=== PATIENT | male | born 1965 | race Caucasian/White ===

== ENCOUNTER 2024-05-19 11:00 | Inpatient (IN) | payer MEDICAID ==
[~2024-05-19] VITALS: Ht 188 cm; Wt 104.0 kg
[2024-05-19 11:26] LABS: EOSINOPHILS # (AUTO) 0.2 X10'3 (0-0.9); HEMOGLOBIN 14.6 g/dl (14.0-17.9); LYMPHOCYTES # (AUTO) 1.2 X10'3 (1.1-4.8); MEAN PLATELET VOLUME 8.3 FL (7.4-10.4); NEUTROPHILS # (AUTO) 5.2 X10'3 (1.8-7.7); RED BLOOD COUNT 5.84 X10'6 (4.70-6.10)
[2024-05-19 11:27] LABS: BASOPHILS % (AUTO) 0.6 % (0-1); EOSINOPHILS % (AUTO) 2.9 % (0-6); HEMATOCRIT 45.5 % (42.0-52.0); LYMPHOCYTES % (AUTO) 15.6 % (21-51); MEAN CORPUSCULAR HEMOGLOBIN 24.9 PG (27.0-31.0); MONOCYTES % (AUTO) 12.8 % (2-12); NEUTROPHILS % (AUTO) 68.1 % (42-75); PLATELET COUNT 282 X10'3 (140-440); RED CELL DISTRIBUTION WIDTH 19.5 % (11.5-14.5); WHITE BLOOD COUNT 7.6 X10'3 (4.5-11.0)
[2024-05-19 11:31] LABS: ALANINE AMINOTRANSFERASE 23 U/L (12-78); ALBUMIN 3.6 G/DL (3.4-5.0); ALBUMIN/GLOBULIN RATIO 1.1 (1.1-1.5); ALKALINE PHOSPHATASE 84 IU/L (46-116); ANION GAP 7 (8-16); ASPARTATE AMINO TRANSFERASE 21 U/L (10-37); BILIRUBIN,TOTAL 0.4 MG/DL (0.1-1.0); BLOOD UREA NITROGEN 13 MG/DL (7-18); BUN/CREATININE RATIO 10.7 (10.0-20.0); CALCIUM 8.6 MG/DL (8.5-10.1); CHLORIDE 104 MMOL/L (99-107); CREATININE 1.21 MG/DL (0.60-1.10); GLUCOSE 113 MG/DL (70-104); POTASSIUM 4.2 MMOL/L (3.5-5.1); SODIUM 139 MMOL/L (135-145); TOTAL CARBON DIOXIDE 28.5 MMOL/L (24-32); eCRCL 76 ML/MIN; eGFR 61 ML/MIN
[2024-05-19 11:39] LABS: PRO BRAIN NATRIURETIC PEPTIDE 241 PG/ML (0-125)
[2024-05-19 12:23] LABS: PLATELET ESTIMATE NORMAL
[2024-05-19 12:24] LABS: ANISOCYTOSIS 2+; ELLIPTOCYTES 1+; HYPOCHROMASIA 1+; MICROCYTOSIS 1+; STOMATOCYTES 1+
[2024-05-19] MEDS ORDERED: LOP25T PO (12:25)
[2024-05-19] MEDS ORDERED: ESCI10TA PO (12:25)
[2024-05-19] MEDS ORDERED: ATOR10TA PO (12:26)
[2024-05-19] MEDS ORDERED: acetaminophen 325mg tablet PO PRN (12:45)
[2024-05-19] MEDS ORDERED: magnesium hydroxide 30ml (MOM) UD suspension PO PRN (12:45)
[2024-05-19] MEDS ORDERED: diphenhydrAMINE 25mg capsule PO PRN (12:45)
[2024-05-19] MEDS ORDERED: diphenhydrAMINE 50 mg/ml inj IV PRN (12:45)
[2024-05-19] MEDS ORDERED: potassium Cl 40MEQ/1/2NS 520ml 520 ML IV PRN (12:45)
[2024-05-19] MEDS ORDERED: magnesium sulf-water 4G/100mL 100 ML IV PRN (12:45)
[2024-05-19] MEDS ORDERED: morphine 2 MG/ML inj. syringe IV PRN (12:45)
[2024-05-19] MEDS ORDERED: magnesium Cl slow-release 64mg tablet PO PRN (12:45)
[2024-05-19] MEDS ORDERED: magnesium sulf-water 2g/50mL 50 ML IV PRN (12:45)
[2024-05-19] MEDS ORDERED: potassium Cl 20 mEq SR tablet PO PRN ×2 (12:45)
[2024-05-19] MEDS: PERFLUTREN PROTEIN-A MICROSPHR (Optison) 0.22 MG/ML 3ML VIAL IV ONE (12:50)
[2024-05-19 13:02] LABS: MAGNESIUM 2.1 MG/DL (1.5-2.4)
[2024-05-19] MEDS: apixaban 5mg tablet PO SCH (14:13)
[2024-05-19] MEDS: aspirin 81mg, enteric-coated 1 TAB TABLET.DR PO STA (14:13)
[2024-05-19] MEDS: atorvastatin 20mg tablet PO STA (14:14)
[2024-05-19] MEDS: clopidogrel 75mg tablet PO STA (14:14)
[2024-05-19] MEDS: ondansetron/PF 4mg/2ml inj IV PRN (14:23)
[2024-05-19] MEDS: morphine 2 MG/ML inj. syringe IV PRN (14:24)
[2024-05-19] MEDS ORDERED: TEST200V33 IM (14:43)
[2024-05-19] MEDS ORDERED: LORazepam 1 MG tablet PO PRN (19:15)
[2024-05-19] MEDS ORDERED: haloperidol 5mg tablet PO PRN (19:15)
[2024-05-19] MEDS ORDERED: haloperidol lactate 5mg/ml inj IM PRN (19:15)
[2024-05-19] MEDS ORDERED: LORazepam 2 mg/ml vial IV PRN (19:15)
[2024-05-19 19:38] LABS: BASOPHILS # (AUTO) 0.1 X10'3 (0-0.2); BASOPHILS % (AUTO) 0.6 % (0-1); EOSINOPHILS # (AUTO) 0.2 X10'3 (0-0.9); EOSINOPHILS % (AUTO) 2.4 % (0-6); HEMATOCRIT 43.3 % (42.0-52.0); HEMOGLOBIN 13.6 g/dl (14.0-17.9); LYMPHOCYTES # (AUTO) 1.1 X10'3 (1.1-4.8); LYMPHOCYTES % (AUTO) 13.3 % (21-51); MEAN CORPUSCULAR HEMOGLOBIN 24.2 PG (27.0-31.0); MEAN CORPUSCULAR HGB CONC 31.3 g/dL (33.0-36.5); MEAN CORPUSCULAR VOLUME 77.4 FL (78-98); MEAN PLATELET VOLUME 7.9 FL (7.4-10.4); MONOCYTES # (AUTO) 0.8 X10'3 (0-0.9); MONOCYTES % (AUTO) 9.7 % (2-12); NEUTROPHILS # (AUTO) 6.3 X10'3 (1.8-7.7); PLATELET COUNT 265 X10'3 (140-440); RED CELL DISTRIBUTION WIDTH 19.3 % (11.5-14.5); WHITE BLOOD COUNT 8.5 X10'3 (4.5-11.0)
[2024-05-19] MEDS: K and/or MAG REPLACEMENT MC SCH (19:41)
[2024-05-19] MEDS: HEPARIN DRIP-CARDIAC**PHARMACIST-TO-DOSE IV ONE (19:44)
[2024-05-19 19:49] LABS: APTT 27 SECONDS (22-32); INR 1.1 INR
[2024-05-19] MEDS: docusate sod 100mg capsule PO SCH (19:51)
[2024-05-19] MEDS: metoprolol succinate 25mg (24-HOUR) SR. Tablet PO SCH (19:51)
[2024-05-19] MEDS: heparin 10,000 units/1 ML INJ IV ONE (19:53)
[2024-05-19] MEDS: heparin 25,000 UNIT/250ml bag 250 ML IV PRN (19:54)
[2024-05-19 19:55] LABS: ELLIPTOCYTES 1+; PLATELET ESTIMATE NORMAL; POIKILOCYTOSIS 1+
[2024-05-19 19:56] LABS: ANISOCYTOSIS 1+; MICROCYTOSIS 1+
[2024-05-19] MEDS: MESSAGE TO NURSING IV ONE (20:03)
[2024-05-19 22:05] VITALS: BP 156/80; PULSE 64; RESP 15; TEMP 97.9; O2SAT 96
[2024-05-19 22:30] VITALS: RESP 15; O2SAT 96
[2024-05-19 23:23] VITALS: BP 137/89; PULSE 71; RESP 18; TEMP 98.3; O2SAT 96
[2024-05-19] MEDS: mag hydrox/Alum hydrox/simeth 30ml oral suspension PO PRN (23:27)
[2024-05-19] MEDS: nitroGLYCERIN 0.4mg SUBLingual tab SL PRN (23:27)
[2024-05-20 02:00] VITALS: BP 124/75; PULSE 78; RESP 12; TEMP 97.2; O2SAT 98
[2024-05-20] MEDS: heparin 10,000 units/1 ML INJ IV PRN (02:37)
[2024-05-20] MEDS: MESSAGE TO NURSING IV ONE ×2 (02:41→09:04)
[2024-05-20 06:00] VITALS: BP 113/73; PULSE 69; RESP 12; TEMP 97.2; O2SAT 97
[2024-05-20 07:01] LABS: BASOPHILS # (AUTO) 0.1 X10'3 (0-0.2); BASOPHILS % (AUTO) 0.5 % (0-1); EOSINOPHILS # (AUTO) 0.2 X10'3 (0-0.9); HEMATOCRIT 41.1 % (42.0-52.0); HEMOGLOBIN 13.4 g/dl (14.0-17.9); LYMPHOCYTES % (AUTO) 9.2 % (21-51); MEAN CORPUSCULAR HEMOGLOBIN 25.1 PG (27.0-31.0); MEAN CORPUSCULAR HGB CONC 32.6 g/dL (33.0-36.5); MEAN CORPUSCULAR VOLUME 76.9 FL (78-98); MONOCYTES % (AUTO) 9.6 % (2-12); NEUTROPHILS # (AUTO) 8.4 X10'3 (1.8-7.7); NEUTROPHILS % (AUTO) 78.7 % (42-75); PLATELET COUNT 228 X10'3 (140-440); RED BLOOD COUNT 5.34 X10'6 (4.70-6.10); RED CELL DISTRIBUTION WIDTH 19.7 % (11.5-14.5); WHITE BLOOD COUNT 10.7 X10'3 (4.5-11.0)
[2024-05-20 07:37] LABS: ALANINE AMINOTRANSFERASE 31 U/L (12-78); ALBUMIN 3.2 G/DL (3.4-5.0); ALKALINE PHOSPHATASE 59 IU/L (46-116); ANION GAP 5 (8-16); ASPARTATE AMINO TRANSFERASE 137 U/L (10-37); BILIRUBIN,TOTAL 0.8 MG/DL (0.1-1.0); BLOOD UREA NITROGEN 14 MG/DL (7-18); BUN/CREATININE RATIO 11.4 (10.0-20.0); CALCIUM 8.2 MG/DL (8.5-10.1); CHLORIDE 103 MMOL/L (99-107); CHOL/HDL RATIO 2.4 (0.00-4.99); CHOLESTEROL 127 MG/DL (0-200); CREATININE 1.23 MG/DL (0.60-1.10); GLUCOSE 107 MG/DL (70-104); HDL CHOLESTEROL 53 MG/DL (35-60); LDL CHOLESTEROL 72 MG/DL (50-100); SODIUM 138 MMOL/L (135-145); TOTAL CARBON DIOXIDE 29.7 MMOL/L (24-32); TOTAL PROTEIN 6.4 G/DL (6.4-8.2); TRIGLYCERIDES 55 MG/DL (20-135); eCRCL 75 ML/MIN; eGFR 60 ML/MIN
[2024-05-20 08:00] VITALS: RESP 15; O2SAT 96
[2024-05-20] MEDS: aspirin 81mg, enteric-coated 1 TAB TABLET.DR PO SCH (08:00)
[2024-05-20] MEDS: atorvastatin 20mg tablet PO SCH (08:00)
[2024-05-20] MEDS ORDERED: clopidogrel 75mg tablet PO SCH (08:00)
[2024-05-20] MEDS ORDERED: midazolam 1 mg/ML 2ml injection ONE ×2 (09:31→10:23)
[2024-05-20] MEDS ORDERED: verapamil 2.5 mg/ml inj IV ONE (09:31)
[2024-05-20] MEDS ORDERED: LIDOcaine 1% (10mg/ml) 2ml vial ONE (09:31)
[2024-05-20] MEDS ORDERED: fentaNYL/PF 50MCG/1 ML 2ML syringe ONE (09:31)
[2024-05-20] MEDS ORDERED: iohexol 350MG/ML 100ml bottle IV ONE ×2 (09:32→10:13)
[2024-05-20] MEDS ORDERED: heparin 1,000unit/ml 10ml vial 10 ML ONE (09:32)
[2024-05-20] MEDS ORDERED: nitroGLYCERIN 500mcg/5mL D5W 5 ML IV ONE (09:33)
[2024-05-20 09:50] VITALS: PULSE 42
[2024-05-20] MEDS ORDERED: ticagrelor 90mg tablet ONE (10:30)
[2024-05-20] MEDS ORDERED: aspirin 325mg tablet ONE (10:31)
[2024-05-20 11:00] VITALS: BP 113/64; PULSE 63; RESP 18; TEMP 97.6; O2SAT 96
[2024-05-20] MEDS ORDERED: HYDROcodone/acetaminophen 5mg/325mg tablet PO PRN (11:05)
[2024-05-20] MEDS ORDERED: HYDROcodone/acetaminophen 10/325mg tab PO PRN (11:05)
[2024-05-20] MEDS ORDERED: OXAZEpam 15mg capsule PO PRN (11:05)
[2024-05-20] MEDS ORDERED: ondansetron/PF 4mg/2ml inj IV PRN (11:05)
[2024-05-20] MEDS ORDERED: proCHLORperazine 10 MG/2 ml inj IV PRN (11:05)
[2024-05-20] MEDS ORDERED: ASPI-1071 PO (13:47)
[2024-05-20] MEDS ORDERED: METO-395 PO (13:47)
[2024-05-20] MEDS ORDERED: ATOR20TA66 PO (13:47)
[2024-05-20] MEDS ORDERED: TICA90TA PO (15:45)
[2024-05-20] MEDS: ticagrelor 90mg tablet PO SCH (15:52)
[2024-05-20] MEDS ORDERED: ticagrelor 90mg tablet PO SCH (20:00)
== END 2024-05-20 16:06 | disposition home or self-care (01) | DRG 174 ==
LOC: ER 11:01 → ED HOLD 12:47 → PCU 3S 22:30
PROVIDERS: ADMIT Nurse Practitioner Family; ATTEND Nurse Practitioner Family
PROC: 027034Z Dilation of Coronary Artery, One Artery with Drug-eluting Intraluminal Device, Percutaneous Approach (ICD-10-PCS; principal; 2024-05-20)
PROC: 4A023N7 Measurement of Cardiac Sampling and Pressure, Left Heart, Percutaneous Approach (ICD-10-PCS; 2024-05-20)
PROC: B2111ZZ Fluoroscopy of Multiple Coronary Arteries using Low Osmolar Contrast (ICD-10-PCS; 2024-05-20)
PROC: B2151ZZ Fluoroscopy of Left Heart using Low Osmolar Contrast (ICD-10-PCS; 2024-05-20)
DX: I21.4 Non-ST elevation (NSTEMI) myocardial infarction (principal); I50.23 Acute on chronic systolic (congestive) heart failure; N17.9 Acute kidney failure, unspecified; I44.0 Atrioventricular block, first degree; I25.10 Atherosclerotic heart disease of native coronary artery without angina pectoris; E78.5 Hyperlipidemia, unspecified; Z79.82 Long term (current) use of aspirin; Z87.891 Personal history of nicotine dependence
CPT/HCPCS: 36415; 71045; 80053; 80061; 83036; 83735; 83880; 84484; 85008; 85025; 85610; 85730; 87081; 93005; 93306; 93458; 97116; 97161; 99152; 99153; 99285; A4615; A6258; C1725; C1751; C1769; C1874; C1894; C9600; G0378; J1644; J2003; J2250; J2270; J2405; J3010; J3490; J7030; Q9967